=== PATIENT | male | born 1940 | race American Indian/Alaskan Native ===

== ENCOUNTER → 2017-06-27 | Day surgery (SDC) | payer MEDICARE, MEDICAID ==
[~2017-06-27] VITALS: Ht 165.1 cm; Wt 57.5 kg
[~2017-06-27] MED LIST: ACETAMINOPHEN 325 MG TAB ONE; ASPI325T33 PO; EPINEPHrine HCL PF/SF (1:1000) 1 MG/ML AMP I-OCULAR ONE; EPINEPHrine-Lidocaine/BSS (PF/SF) 4-120 mg/16 mL OPTH SYR RIGHT EYE ONE; FINA5TAB2 PO; FURO40TA PO; HYALURONIDASE/LIDOCAINE/BUPIVACAINE 5 ML SYR RIGHT EYE ONE; LEVEMIR SQ; LEVO.05 PO; LIPI20TA PO; LISI2.5T3 PO; METF1000 PO; METO5TAB3 PO; ONETKIT9; ONETTES4; POTA10CA PO; PROPOFOL 200 MG/20 ML AMP ONE; SITA50 PO; SODIUM CHLORID 0.9% 500 ML INJ 500 ML ONE; TOBRAMYCIN/DEXAMETHASONE OPTH OINT 3.5 GM TUBE ONE; VISCOAT OPHT IRRIG SOLN 0.75 ML SYRINGE ONE; WHEEMIS3
[2017-06-27 09:05] VITALS: PULSE 64
[2017-06-27] MEDS: CYCLOPENTOLATE HCL 1% OPHT SOLN 2 ML BTL RIGHT EYE SCH ×3 (09:07→09:17)
[2017-06-27] MEDS: PHENYLEPHRINE HCL 10% OPTH SOLN 5 ML BTL RIGHT EYE SCH ×3 (09:07→09:17)
[2017-06-27] MEDS: TETRACAINE 0.5% OPTH SOLN 4 ML BTL RIGHT EYE SCH ×3 (09:07→09:17)
[2017-06-27] MEDS: TROPICAMIDE 1% OPHT SOLN 15 ML BTL RIGHT EYE SCH ×3 (09:07→09:17)
[2017-06-27 09:40] VITALS: PULSE 69
[2017-06-27 10:32] VITALS: TEMP 97.5
--- NOTE | 2017-06-27 10:32 | PD.OP ---
Operative Report Date of Surgery: Jun 27, 2017 Preoperative Diagnosis: (1) Nuclear sclerotic cataract of right eye Postoperative Diagnosis: (1) Pseudophakia of right eye Procedure: phacoemulsification and intraocular lens implant right eye Anesthesia: retrobulbar block, MAC Surgeon: Nancy Browning Sheriffs Detective(s): none Operation and Findings: Patient was consented for surgery, given a retrobulbar block by anesthesia, and taken back to the operating room. He was prepped and draped in the usual sterile fashion for ophthalmic surgery. A wire lid speculum was placed in the right eye. A paracentesis incision was created at the 11 o'clock position on the limbus. Vision blue dye, intracameral Epishugarcaine, and viscoelastic was injected into the anterior chamber. The main incision was created at the 8 o' clock position on the limbus with a 2.4 mm keratome. A continuous curvilinear capsulorrhexis was made on the anterior lens capsule. Hydrodissection was used to separate the lens from the capsule. Phacoemulsification was used to remove the lens nucleus material. Irrigation and aspiration was used to remove the remaining cortical material. The lens implant ([id number] SN [id number]) was placed in the capsular bag. Viscoelastic was removed with irrigation and aspiration. The incisions were irrigated and found to be watertight. Tobradex ointment, a patch, and shield were placed on the right eye. The patient was sent to PACU in stable condition. Nancy Browning MD Jun 27, 2017 10:31
[2017-06-27 10:57] VITALS: BP 118/58; PULSE 75; RESP 16; O2SAT 100
== END | disposition home or self-care (01) ==
LOC: PHSDC 08:28
PROVIDERS: ATTEND Ophthalmology
DX: H25.11 Age-related nuclear cataract, right eye (principal); E11.22 Type 2 diabetes mellitus with diabetic chronic kidney disease; I13.0 Hypertensive heart and chronic kidney disease with heart failure and stage 1 through stage 4 chronic kidney disease, or unspecified chronic kidney disease; N18.9 Chronic kidney disease, unspecified; I50.20 Unspecified systolic (congestive) heart failure; R57.0 Cardiogenic shock; E03.9 Hypothyroidism, unspecified; I25.2 Old myocardial infarction; G62.9 Polyneuropathy, unspecified; F41.9 Anxiety disorder, unspecified; Z79.84 Long term (current) use of oral hypoglycemic drugs
CPT/HCPCS: 00142; 66984; 82948; J0171; J7040; V2632

== ENCOUNTER → 2017-07-25 | Day surgery (SDC) | payer MEDICARE, OTHER, MEDICAID ==
[~2017-07-25] MED LIST changes: -ACETAMINOPHEN 325 MG TAB ONE; -ASPI325T33 PO; +CHLORHEXIDINE GLUCONATE 2 % 1 PACK (2 CLOTHS) TOPICAL; +CYCLOPENTOLATE HCL 1% OPHT SOLN 2 ML BTL; -EPINEPHrine HCL PF/SF (1:1000) 1 MG/ML AMP I-OCULAR ONE; +EPINEPHrine-Lidocaine/BSS (PF/SF) 4-120 mg/16 mL OPTH SYR; -EPINEPHrine-Lidocaine/BSS (PF/SF) 4-120 mg/16 mL OPTH SYR RIGHT EYE ONE; -FINA5TAB2 PO; -FURO40TA PO; +GLYCOPYRROLATE 0.2 MG/ML VIAL; +HYALURONIDASE/LIDOCAINE/BUPIVACAINE 5 ML SYR; -HYALURONIDASE/LIDOCAINE/BUPIVACAINE 5 ML SYR RIGHT EYE ONE; +LACTATED RINGER'S 1000 ML IV; -LEVEMIR SQ; -LEVO.05 PO; -LIPI20TA PO; -LISI2.5T3 PO; -METF1000 PO; -METO5TAB3 PO; +METOPROLOL TARTRATE 25 MG TAB PO; -ONETKIT9; -ONETTES4; +PHENYLEPHRINE HCL 10% OPTH SOLN 5 ML BTL; -POTA10CA PO; +POVIDONE IODINE 5% (ANTISEPSIS KIT) 4 APPLICATIONS EACH NARE; -PROPOFOL 200 MG/20 ML AMP ONE; -SITA50 PO; -SODIUM CHLORID 0.9% 500 ML INJ 500 ML ONE; +SODIUM CHLORID 0.9% 500 ML IV; +TETRACAINE 0.5% OPTH SOLN 4 ML BTL; -TOBRAMYCIN/DEXAMETHASONE OPTH OINT 3.5 GM TUBE ONE; +TROPICAMIDE 1% OPHT SOLN 15 ML BTL; -VISCOAT OPHT IRRIG SOLN 0.75 ML SYRINGE ONE; -WHEEMIS3
[2017-07-25] MEDS: MIDAZOLAM HCL 2 MG/2 ML VIAL (06:52)
[2017-07-25] MEDS: TETRACAINE 0.5% OPTH SOLN 4 ML BTL LEFT EYE ×3 (07:03→07:13)
[2017-07-25] MEDS: TROPICAMIDE 1% OPHT SOLN 15 ML BTL LEFT EYE ×3 (07:03→07:13)
[2017-07-25] MEDS: PHENYLEPHRINE HCL 10% OPTH SOLN 5 ML BTL LEFT EYE ×3 (07:03→07:13)
[2017-07-25] MEDS: CYCLOPENTOLATE HCL 1% OPHT SOLN 2 ML BTL LEFT EYE ×3 (07:03→07:13)
[2017-07-25] MEDS: PROPOFOL 200 MG/20 ML AMP (07:32)
[2017-07-25] MEDS: HYALURONIDASE/LIDOCAINE/BUPIVACAINE 5 ML SYR LEFT EYE ×2 (07:34→07:35)
[2017-07-25] MEDS: EPINEPHrine-Lidocaine/BSS (PF/SF) 4-120 mg/16 mL OPTH SYR LEFT EYE (08:19)
[2017-07-25] MEDS: EPINEPHrine HCL PF/SF (1:1000) 1 MG/ML AMP I-OCULAR (08:19)
[2017-07-25] MEDS: VISCOAT OPHT IRRIG SOLN 0.75 ML SYRINGE (08:25)
[2017-07-25] MEDS: TOBRAMYCIN/DEXAMETHASONE OPTH OINT 3.5 GM TUBE (09:00)
[2017-07-25] MEDS: acetaZOLAMIDE SEQUELS 500 MG SUSTAINED RELEASE CAP (09:24)
[2017-07-25] MEDS: ACETAMINOPHEN 325 MG TAB (09:27)
== END | disposition home or self-care (01) ==
LOC: PHSDC 06:28
DX: H25.12 Age-related nuclear cataract, left eye (principal); H21.81 Floppy iris syndrome; I25.2 Old myocardial infarction; I50.9 Heart failure, unspecified; I73.9 Peripheral vascular disease, unspecified; J44.9 Chronic obstructive pulmonary disease, unspecified; H40.9 Unspecified glaucoma; E78.5 Hyperlipidemia, unspecified; G62.9 Polyneuropathy, unspecified; I13.0 Hypertensive heart and chronic kidney disease with heart failure and stage 1 through stage 4 chronic kidney disease, or unspecified chronic kidney disease; E11.22 Type 2 diabetes mellitus with diabetic chronic kidney disease; N18.9 Chronic kidney disease, unspecified
CPT/HCPCS: 66982; 82948